=== PATIENT | male | born 1950 | race Caucasian/White ===

== ENCOUNTER 2020-05-05 11:24 | Emergency (ER) | payer MEDICARE, BC ==
[2020-05-05] MEDS ORDERED: Sodium Chloride 0.9% 10 ML Syringe FLUSH PRN (11:42)
--- NOTE | 2020-05-05 11:56 | EDM.PDOC ---
ED HPI GENERAL MEDICAL PROBLEM - General Chief Complaint: Cardiovascular Problem Stated Complaint: STENT PLACED SATURDAY, POST OP SOB Time Seen by Provider: 05/05/20 11:42 Source of Information: Reports: Patient, Family (), RN Notes Reviewed History Limitations: Reports: No Limitations - History of Present Illness INITIAL COMMENTS - FREE TEXT/NARRATIVE: Patient is a 69-year-old male who presents to the ED for the evaluation of chest pain and shortness of breath. Patient notes that he did have a cardiac stent placed by Dr. Palm at [facility] in [place] this past Saturday and was discharged home Saturday, apparently everything went well. The thinks that the stent was placed in the mid LAD. The patient notes that around 8 AM, the patient developed chest pain, feeling sweaty, nausea, shortness of breath, and feelings of dizziness. Patient states that he is now having some sort of dull ache type pain to his mid upper chest, but is no longer nauseous. He is also complaining of some left shoulder pain. Patient's vitals are stable, respiratory rate is 16, heart rate 84, he is afebrile with a temperature 97.2 F , blood pressure is 135/74, and 125/73 respectively on recheck, O2 sats are 97% on room air. Patient does have a history of diabetes, and does take metformin, his blood sugar this morning that the noted was 329. He is also on Brilinta, lisinopril/hydrochlorothiazide daily, Norvasc 5 mg daily, and metoprolol 100 mg daily, Crestor daily. Upper Chest Pain Score (Numeric/FACES): 2 - Related Data Allergies Allergy/AdvReac Type Severity Reaction Status Date / Time No Known Allergies Allergy Verified 05/05/20 11:41 Home Meds: Home Meds Glimepiride [Amaryl] 2 mg PO DAILY 05/05/20 [History] Lisinopril/Hydrochlorothiazide [Lisinopril-Hctz 20-25 mg Tab] 1 tab PO DAILY 03/21 [History] Loratadine 10 mg PO BID 05/05/20 [History] Magnesium Chloride [Slow-Mag] 71.5 mg PO DAILY #7 tablet. 05/05/20 [Rx] Metoprolol Succinate [Toprol XL 100mg] 100 mg PO DAILY 05/05/20 [History] Rosuvastatin [Crestor] 10 mg PO DAILY 05/05/20 [History] Spironolactone [Aldactone] 25 mg PO DAILY 05/05/20 [History] Ticagrelor [Brilinta] 90 mg PO BID 05/05/20 [History] amLODIPine [Norvasc] 5 mg PO DAILY 05/05/20 [History] metFORMIN [Glucophage] 500 mg PO BIDMEALS 05/05/20 [History] ED ROS GENERAL - Review of Systems Review Of Systems: See Below Constitutional: Reports: Diaphoresis. Denies: Fever, Chills Respiratory: Reports: Shortness of Breath. Denies: Cough Cardiovascular: Reports: Chest Pain (mid chest pain/discomfort), Lightheadedness. Denies: Blood Pressure Problem, Edema GI/Abdominal: Denies: Abdominal Pain, Diarrhea, Nausea, Vomiting Neurological: Reports: Dizziness ED EXAM, GENERAL - Physical Exam Exam: See Below Exam Limited By: No Limitations General Appearance: Alert, WD/WN, No Apparent Distress Eye Exam: Bilateral Eye: EOMI, Normal Inspection, PERRL Throat/Mouth: Normal Inspection, Normal Lips, Normal Teeth, Normal Gums, Normal Oropharynx, Normal Voice, No Airway Compromise Head: Atraumatic, Normocephalic Neck: Normal Inspection Respiratory/Chest: No Respiratory Distress, Lungs Clear, Normal Breath Sounds, No Accessory Muscle Use, Chest Non-Tender Cardiovascular: Normal Peripheral Pulses, Regular Rate, Rhythm, No Murmur Peripheral Pulses: 3+: Radial (L), Radial (R) GI/Abdominal: Normal Bowel Sounds, Soft, Non-Tender, No Distention, No Mass Extremities: Normal Inspection, Normal Capillary Refill Neurological: Alert, Oriented, Normal Cognition, No Motor/Sensory Deficits Psychiatric: Normal Affect, Normal Mood Skin Exam: Warm, Dry, Intact, Normal Color, No Rash EKG INTERPRETATION EKG Date: 05/05/20 Time: 12:02 Rhythm: NSR Rate (Beats/Min): 82 Colt: Normal P-Wave: Present QRS: Normal ST-T: Normal QT: Normal Comparison: NA - No Prior EKG EKG Interpretation Comments: No obvious ischemia or acute ST changes noted, reviewed by myself and Dr. Mensah. Course - Vital Signs Last Recorded V/S: Last Vital Signs Temp 97.2 F 05/05/20 11:35 Pulse 84 05/05/20 11:35 Resp 16 05/05/20 11:35 BP 135/74 05/05/20 11:35 Pulse Ox 97 05/05/20 11:35 - Orders/Labs/Meds Orders: Active Orders 24 hr Category Date Time Status EKG Documentation Completion [RC] STAT Care 05/05/20 11:42 Active Peripheral IV Care [RC] . DIRECTED Care 05/05/20 11:44 Active Magnesium Sulfate/Water [Magnesium Sulfate in Water Med 05/05/20 13:00 Ordered Premix] 2 gm Premix Bag 1 bag IV ONETIME Sodium Chloride 0.9% [Saline Flush] Med 05/05/20 11:42 Active 10 ml FLUSH ASDIRECTED PRN Peripheral IV Insertion Adult [OM.PC] Stat Oth 05/05/20 11:42 Ordered Medication Orders Magnesium Sulfate 2 gm/ Premix 50 mls @ 25 mls/hr IV ONETIME ONE Stop: 05/05/20 14:59 Last Admin: 05/05/20 13:15 Dose: 25 mls/hr Sodium Chloride (Saline Flush) 10 ml FLUSH ASDIRECTED PRN PRN Reason: Keep Vein Open Last Admin: 05/05/20 12:05 Dose: 10 ml Labs: Laboratory Tests 05/05/20 05/05/20 05/05/20 Range/Units 11:55 11:55 11:55 WBC 9.74 H (4.23-9.07) K/mm3 RBC 4.12 L (4.63-6.08) M/mm3 Hgb 13.5 L (13.7-17.5) gm/dl Hct 38.3 L (40.1-51.0) % MCV 93.0 H (79.0-92.2) fl MCH 32.8 H (25.7-32.2) pg MCHC 35.2 (32.2-35.5) g/dl RDW Std Deviation 41.1 (35.1-43.9) fL Plt Count 266 (163-337) K/mm3 MPV 9.9 (9.4-12.3) fl Neutrophils % (Manual) 67 H (40-60) % Band Neutrophils % 0 (0-10) % Lymphocytes % (Manual) 29 (20-40) % Atypical Lymphs % 0 % Immat Monocytes % (Man) 0 Monocytes % (Manual) 4 (2-10) % Eosinophils % (Manual) 0 L (0.8-7.0) % Basophils % (Manual) 0 L (0.2-1.2) Metamyelocytes % 0 Myelocytes % 0 Promyelocytes % 0 Blast Cells % 0 Plasma Cell % (Manual) 0 Nucleated RBCs 0.0 % Platelet Estimate Adequate RBC Morph Comment Normal PT 10.3 (9.7-12.0) SECONDS INR 0.94 APTT 27 (22-31) SECONDS Sodium 132 L (136-145) mEq/L Potassium 4.1 (3.5-5.1) mEq/L Chloride 96 L (98-107) mEq/L Carbon Dioxide 23 (21-32) mEq/L Anion Gap 17.1 H (5-15) BUN 20 H (7-18) mg/dL Creatinine 1.1 (0.7-1.3) mg/dL Est Cr Clr Drug Dosing 66.55 mL/min Estimated GFR (MDRD) > 60 (>60) mL/min BUN/Creatinine Ratio 18.2 H (14-18) Glucose 214 H (80-115) mg/dL Calcium 9.4 (8.5-10.1) mg/dL Magnesium 1.4 L (1.8-2.4) mg/dl Total Bilirubin 0.5 (0.2-1.0) mg/dL AST 19 (15-37) U/L ALT 46 (16-63) U/L Alkaline Phosphatase 46 (46-116) U/L Troponin I < 0.017 (0.00-0.056) ng/mL NT-Pro-B Natriuret Pep (0-125) pg/mL Total Protein 7.4 (6.4-8.2) g/dl Albumin 4.3 (3.4-5.0) g/dl Globulin 3.1 gm/dL Albumin/Globulin Ratio 1.4 (1-2) 05/05/20 Range/Units 11:55 WBC (4.23-9.07) K/mm3 RBC (4.63-6.08) M/mm3 Hgb (13.7-17.5) gm/dl Hct (40.1-51.0) % MCV (79.0-92.2) fl MCH (25.7-32.2) pg MCHC (32.2-35.5) g/dl RDW Std Deviation (35.1-43.9) fL Plt Count (163-337) K/mm3 MPV (9.4-12.3) fl Neutrophils % (Manual) (40-60) % Band Neutrophils % (0-10) % Lymphocytes % (Manual) (20-40) % Atypical Lymphs % % Immat Monocytes % (Man) Monocytes % (Manual) (2-10) % Eosinophils % (Manual) (0.8-7.0) % Basophils % (Manual) (0.2-1.2) Metamyelocytes % Myelocytes % Promyelocytes % Blast Cells % Plasma Cell % (Manual) Nucleated RBCs % Platelet Estimate RBC Morph Comment PT (9.7-12.0) SECONDS INR APTT (22-31) SECONDS Sodium (136-145) mEq/L Potassium (3.5-5.1) mEq/L Chloride (98-107) mEq/L Carbon Dioxide (21-32) mEq/L Anion Gap (5-15) BUN (7-18) mg/dL Creatinine (0.7-1.3) mg/dL Est Cr Clr Drug Dosing mL/min Estimated GFR (MDRD) (>60) mL/min BUN/Creatinine Ratio (14-18) Glucose (80-115) mg/dL Calcium (8.5-10.1) mg/dL Magnesium (1.8-2.4) mg/dl Total Bilirubin (0.2-1.0) mg/dL AST (15-37) U/L ALT (16-63) U/L Alkaline Phosphatase (46-116) U/L Troponin I (0.00-0.056) ng/mL NT-Pro-B Natriuret Pep 86 (0-125) pg/mL Total Protein (6.4-8.2) g/dl Albumin (3.4-5.0) g/dl Globulin gm/dL Albumin/Globulin Ratio (1-2) Meds: Medications Generic Name Dose Route Start Last Admin Trade Name Freq PRN Reason Stop Dose Admin Magnesium Sulfate 2 gm/ Premix 50 mls @ 25 mls/hr 05/05/20 13:00 05/05/20 13: 15 IV 06/04/20 14:59 25 mls/hr ONETIME ONE Administration Sodium Chloride 10 ml 05/05/20 11:42 05/05/20 12:05 Saline Flush FLUSH 10 ml ASDIRECTED PRN Administration Keep Vein Open - Re-Assessments/Exams Free Text/Narrative Re-Assessment/Exam: 05/05/20 12:05 Patient presents to the ED for evaluation of sudden onset chest pain, and multiple other symptoms after recent stent placement last week Saturday. Have ordered labs, EKG and chest x-ray for evaluation, will likely be needing to follow-up with cardiology for troponin results as I assume they are going to be elevated due to recent instrumentation. 05/05/20 12:52 Patient's laboratory evaluation was essentially normal, white blood cell count is mildly elevated at 9.74, differential still pending. Metabolic panel demonstrates a mildly low sodium at 132, mildly low magnesium at 1.4, anion gap elevated at 17.1, and BUN elevated at 20. Which would suggest that he has got some dehydration going, and he should increase his oral fluid intake. 05/05/20 13:17 I was able to talk with Dr. Palm, and he thinks that the patient's arm pain could be due to muscle spasms secondary to the low magnesium, he had no other cardiac considerations regarding the patient. He did state that he would like 3 g of magnesium given IV, however we only have selections for 2 or 4 g. So he will be given 2 g IV magnesium, and oral supplementation. He states that he has a follow-up appoint with Dr. Baires on Saturday, this will work well to have his labs rechecked. There was some concern expressed by family regarding COVID testing, we cannot do in-house testing at this time due to limited supply and rationing for inpatient and surgical candidates. I did offer to do state COVID testing, they will talk amongst themselves and decide if this is something they want to do. He is asymptomatic for any sort of COVID-like symptoms, O2 sats of been 96% on room air, and chest x-ray has also been read as no acute changes. Departure - Departure Time of Disposition: 13:20 Disposition: Home, Self-Care 01 Condition: Good Clinical Impression: Chest pain in adult, Hypomagnesemia Prescriptions: Magnesium Chloride [Slow-Mag] 71.5 mg PO DAILY #7 tablet. Instructions: Hypomagnesemia Referrals: Sanford Baires MD [Primary Care Provider] - Forms: ED Department Discharge Additional Instructions: You were evaluated in the ER today regarding your central chest pain. You had laboratory evaluation, EKG and chest x-ray done at today's visit, EKG and cardiac labs were within normal limits, there is no sign of any acute cardiac injury at today's visit. Chest x-ray was also within normal limits. You were found to have hypomagnesemia, along with some slight dehydration. You were given 2 g of IV magnesium for replacement, and will be given oral supplementation to take over the weekend, and have your labs values redrawn with Dr. Baires for follow-up on Saturday. Your director of provider relations was consulted on your case, and he was made aware of your ER visit, and has no other cardiac considerations regarding today's visit due to the normal EKG and negative troponin. Please return to the ER at any time if symptoms change or worsen. Sepsis Event Note - Evaluation Sepsis Screening Result: No Definite Risk - Focused Exam Vital Signs: Vital Signs Temp Pulse Resp BP Pulse Ox 05/05/20 11:35 97.2 F 84 16 135/74 97 Date Exam was Performed: 05/05/20 Time Exam was Performed: 13:17 - My Orders Last 24 Hours: My Active Orders 05/05/20 11:42 EKG Documentation Completion [RC] STAT Sodium Chloride 0.9% [Saline Flush] 10 ml FLUSH ASDIRECTED PRN Peripheral IV Insertion Adult [OM.PC] Stat 05/05/20 11:44 Peripheral IV Care [RC] . DIRECTED 05/05/20 13:00 Magnesium Sulfate/Water [Magnesium Sulfate in Water Premix] 2 gm Premix Bag 1 bag IV ONETIME - Assessment/Plan Last 24 Hours: My Active Orders 05/05/20 11:42 EKG Documentation Completion [RC] STAT Sodium Chloride 0.9% [Saline Flush] 10 ml FLUSH ASDIRECTED PRN Peripheral IV Insertion Adult [OM.PC] Stat 05/05/20 11:44 Peripheral IV Care [RC] . DIRECTED 05/05/20 13:00 Magnesium Sulfate/Water [Magnesium Sulfate in Water Premix] 2 gm Premix Bag 1 bag IV ONETIME
--- NOTE | 2020-05-05 12:45 | CR ---
Chest: Portable view of the chest was obtained. Comparison: No prior chest x-ray. Heart size and mediastinum are normal. Coronary artery stent or calcification is seen. Lungs are clear with no acute parenchymal change. Bony structures are grossly intact. Impression: 1. Findings as noted above. 2. Nothing acute is seen. Diagnostic code #2 This report was dictated in MDT
[2020-05-05] MEDS ORDERED: Magnesium Sulfate/Water 2 GM in Premix Bag 1 BAG IV ONE (13:00)
== END 2020-05-05 15:08 | disposition home or self-care (01) ==
LOC: JD.ED 11:24
DX: R07.9 Chest pain, unspecified (principal); E83.42 Hypomagnesemia; E11.9 Type 2 diabetes mellitus without complications; Z79.84 Long term (current) use of oral hypoglycemic drugs; Z79.899 Other long term (current) drug therapy
CPT/HCPCS: 36415; 71045; 80053; 83735; 83880; 84484; 85007; 85027; 85610; 85730; 93005; 96365; 96366; 99285; J3475

== ENCOUNTER 2023-09-15 10:54 | Emergency (ER) | payer MEDICARE, BC ==
[2023-09-15] MEDS ORDERED: Sodium Chloride 0.9% 10 ML Syringe FLUSH PRN (11:01)
[2023-09-15 11:20] LABS: BASOPHILS ABSOLUTE AUTO 0.1 K/mm3 (0.0-0.2); BASOPHILS PERCENT AUTO 0.8 % (0.0-1.0); EOSINOPHILS ABSOLUTE AUTO 0.2 K/mm3 (0.0-0.4); EOSINOPHILS PERCENT AUTO 2.2 % (0.0-6.0); HEMATOCRIT 43.4 % (42.0-52.0); HEMOGLOBIN 14.9 gm/dl (14.0-18.0); IMMATURE GRAN ABSOLUTE AUTO 0.03 K/mm3 (0.00-0.05); IMMATURE GRAN PERCENT AUTO 0.3 % (0.0-0.4); LYMPHOCYTES PERCENT AUTO 22.4 % (24.0-44.0); MEAN CORPUSCULAR HEMOGLOBIN 33.5 pg (28.0-32.0); MEAN CORPUSCULAR HGB CONC 34.3 g/dl (32.0-36.0); MEAN CORPUSCULAR VOLUME 97.5 fl (83.0-99.0); MEAN PLATELET VOLUME 9.4 fl (9.4-12.4); MONOCYTES ABSOLUTE AUTO 0.8 K/mm3 (0.0-0.8); MONOCYTES PERCENT AUTO 8.7 % (0.0-8.0); NEUTROPHILS ABSOLUTE AUTO 5.8 K/mm3 (1.8-7.7); NEUTROPHILS PERCENT AUTO 65.6 % (41.0-71.0); PLATELET COUNT,PLT 218 K/mm3 (150-400); RED BLOOD CELL COUNT 4.45 M/mm3 (4.52-5.90); WHITE BLOOD CELL COUNT,WBC 8.82 K/mm3 (3.9-11.3)
[2023-09-15 11:41] LABS: INR 0.97; PROTHROMBIN TIME 10.4 SECONDS (9.7-12.0)
[2023-09-15 11:44] LABS: D-DIMER QUANTITATIVE 0.72 mg/L (0.19-0.50)
[2023-09-15] MEDS ORDERED: Iopamidol 755 Mg/ML 100 ML Bottle IVPUSH ONE (11:56)
[2023-09-15] MEDS ORDERED: Sodium Chloride 0.9% 100 ML IV SCH (12:00)
[2023-09-15 12:03] LABS: A/G RATIO 1.4 (1-2); ANION GAP 18.5 (5-15); BILIRUBIN TOTAL 0.5 mg/dL (0.2-1.0); BUN/CREATININE RATIO 24.6 (14-18); CALCIUM 9.3 mg/dL (8.5-10.1); CREATININE 1.3 mg/dL (0.7-1.3); EST CRCL DRUG DOSING (CG) 52.25 mL/min; MAGNESIUM 1.9 mg/dL (1.8-2.4); POTASSIUM,K 4.5 mEq/L (3.5-5.1); PROTEIN TOTAL,TP 6.9 g/dl (6.4-8.2)
[2023-09-15] MEDS ORDERED: Sodium Chloride 0.9% 1,000 ML IV SCH (12:15)
[2023-09-15] MEDS ORDERED: Nitroglycerin/D5W 25 MG/250 ML BOTTLE IV SCH (13:00)
[2023-09-15] MEDS ORDERED: Morphine 2 MG/ML SYRINGE IVPUSH ONE (13:29)
[2023-09-15] MEDS ORDERED: Naloxone 0.4 MG/ML SDV IVPUSH PRN (13:29)
== END 2023-09-15 15:15 ==
LOC: JD.ED 10:54
DX: I25.9 Chronic ischemic heart disease, unspecified (principal); E78.00 Pure hypercholesterolemia, unspecified; I10 Essential (primary) hypertension; E11.9 Type 2 diabetes mellitus without complications; Z87.891 Personal history of nicotine dependence; Z79.84 Long term (current) use of oral hypoglycemic drugs; Z79.82 Long term (current) use of aspirin; Z79.899 Other long term (current) drug therapy
CPT/HCPCS: 36415; 71045; 71275; 80053; 83735; 83880; 84484; 85025; 85379; 85610; 93005; 96365; 96375; 99285; J2270; J3490; J7030; Q9967

== ENCOUNTER 2025-02-24 10:13 | Day surgery (SDC) | payer MEDICARE ==
[~2025-02-24 10:13] MED LIST: Sodium Chloride 0.9% 10 ML Syringe FLUSH PRN; Sodium Chloride 0.9% 10 ML Syringe FLUSH SCH
[2025-02-24] MEDS: Lactated Ringers 1,000 ML IV SCH (11:05)
[2025-02-24] MEDS ORDERED: propofoL 500 MG/50 ML 50 ML ONE (11:20)
[2025-02-24] MEDS ORDERED: Lidocaine 1% 4 ML ONE (11:20)
[2025-02-24] MEDS ORDERED: Propofol 200 MG/20 ML SDV ONE ×2 (12:22→12:48)
[2025-02-24] MEDS ORDERED: Lactated Ringers 1,000 ML IV ONE (13:15)
== END 2025-02-24 14:30 | disposition home or self-care (01) ==
LOC: JD.SDS 10:13
PROVIDERS: ATTEND Surgery
DX: Z12.11 Encounter for screening for malignant neoplasm of colon (principal); D12.3 Benign neoplasm of transverse colon; D12.2 Benign neoplasm of ascending colon; D12.4 Benign neoplasm of descending colon; D12.8 Benign neoplasm of rectum; K31.7 Polyp of stomach and duodenum; Q43.8 Other specified congenital malformations of intestine; K57.30 Diverticulosis of large intestine without perforation or abscess without bleeding; K64.8 Other hemorrhoids; K21.9 Gastro-esophageal reflux disease without esophagitis; Z86.0101 Personal history of adenomatous and serrated colon polyps; E11.9 Type 2 diabetes mellitus without complications; I10 Essential (primary) hypertension; E78.2 Mixed hyperlipidemia; G47.33 Obstructive sleep apnea (adult) (pediatric); Z95.5 Presence of coronary angioplasty implant and graft; Z79.84 Long term (current) use of oral hypoglycemic drugs; Z79.899 Other long term (current) drug therapy
CPT/HCPCS: 43239; 43251; 45380; 45381; J2003; J2704; J7120; 00813; 88305; 99100